=== PATIENT | female | born 1995 | race Hispanic/Latino ===

== ENCOUNTER 2025-07-06 18:00 | Inpatient (IN) | payer MEDICAID, OTHER, SELFPAY ==
[~2025-07-06 18:00] MED LIST: Bupivacaine 0.25% HCL 30 ML VIAL ONE
[2025-07-06 18:59] VITALS: BMI 30.9
[2025-07-06] MEDS ORDERED: Lidocaine 1% (PF) 30 ML VIAL SC PRN (19:32)
[2025-07-06] MEDS ORDERED: hydrALAZINE 20 MG/ML VIAL SLOW IVP PRN (19:32)
[2025-07-06] MEDS ORDERED: Ondansetron PF 4 MG/2 ML Vial IVP PRN (19:32)
[2025-07-06] MEDS ORDERED: Diphenoxylate HCl/Atropine Tablet PO PRN ×2 (19:33)
[2025-07-06] MEDS ORDERED: Tranexamic Acid 1,000 MG/10 ML VIAL IVP PRN (19:33)
[2025-07-06] MEDS ORDERED: Methylergonovine 0.2 MG/ML VIAL IM PRN (19:33)
[2025-07-06] MEDS ORDERED: Ibuprofen 800 MG TAB PO PRN (19:33)
[2025-07-06] MEDS ORDERED: Carboprost 250 MCG/ML AMP IM PRN (19:33)
[2025-07-06] MEDS ORDERED: Acetaminophen 500 MG TAB PO PRN (19:33)
[2025-07-06] MEDS ORDERED: Oxytocin 30 units/NS 500 ML 500 ML IV SCH (19:45)
[2025-07-06 19:52] LABS: Hematocrit 36.3 % (34.9-44.5); Hemoglobin 12.3 g/dL (12.0-15.5); Mean Corpuscular Hemoglobin 29.2 pg (27.0-33.0); Mean Corpuscular Volume 86.2 fL (81.6-98.3); Platelet Count 163 10x3/uL (150-450); Red Blood Cell (RBC) Count 4.21 10x6/uL (3.90-5.03); White Blood Cell (WBC) Count 7.79 10x3/uL (3.5-10.5)
[2025-07-06 20:52] LABS: Hep B Surf Ag - L&D Non-Reactive S/CO (NonReactive)
[2025-07-06 20:53] LABS: Syphilis Antibody Index 0.09 S/CO (<1.00 Non-Reactive)
[2025-07-07] MEDS: Penicillin G Potassium 5 MILL.UNITS in Sodium Chloride 0.9% 100 ML IVPB SCH (09:57)
[2025-07-07] MEDS: fentaNYL/Ropivacaine Epidural 100 ML ONE (10:56)
[2025-07-07] MEDS ORDERED: Acetaminophen 325 MG TAB PO PRN (11:35)
[2025-07-07] MEDS ORDERED: Ondansetron PF 4 MG/2 ML Vial IVP PRN (11:35)
[2025-07-07] MEDS ORDERED: diphenhydrAMINE 50 MG/ML VIAL IVP PRN (11:35)
[2025-07-07] MEDS ORDERED: Communication Order-Pharmacy FS SCH (11:45)
[2025-07-07] MEDS ORDERED: fentaNYL 2 mcg/Ropivacaine 0.2% Epidural 100 ML CADD EPIDURAL SCH (11:45)
[2025-07-07] MEDS: Penicillin G 2.5 MILL.units 2.5 MILL.UNITS in Premix 1 BAG IVPB SCH (13:04)
[2025-07-07] MEDS: Oxytocin 30 units/NS 500 ML 500 ML IV SCH (15:53)
[2025-07-08] MEDS ORDERED: Preparation H Ointment 28 GM TUBE PR PRN
[2025-07-08] MEDS ORDERED: Milk Of Magnesia 30 ML UDCUP PO PRN
[2025-07-08] MEDS ORDERED: Lanolin Ointment 7 GM TUBE TOP PRN
[2025-07-08] MEDS ORDERED: Methylergonovine 0.2 MG/ML VIAL IM PRN
[2025-07-08] MEDS ORDERED: hydrALAZINE 20 MG/ML VIAL SLOW IVP PRN
[2025-07-08] MEDS ORDERED: Oxytocin 30 units/NS 500 ML 500 ML IV SCH
[2025-07-08] MEDS ORDERED: Methylergonovine 0.2 MG TAB PO PRN
[2025-07-08] MEDS ORDERED: Bisacodyl 10 MG SUPP PR PRN
[2025-07-08] MEDS ORDERED: Ondansetron PF 4 MG/2 ML Vial IVP PRN
[2025-07-08] MEDS: Oxytocin 30 units/NS 500 ML 500 ML IV SCH (00:22)
[2025-07-08] MEDS: Ibuprofen 800 MG TAB PO SCH (01:00)
[2025-07-08] MEDS: Boostrix 0.5 ML (Tdap) VIAL (>/=7 yrs of age) IM ONE (02:38)
[2025-07-08] MEDS: Lidocaine 1% (PF) 30 ML VIAL ONE (02:38)
[2025-07-08 05:28] LABS: Hematocrit 34.1 % (34.9-44.5); Hemoglobin 11.5 g/dL (12.0-15.5)
[2025-07-08] MEDS: Ferrous Sulfate 325 MG TAB PO SCH (08:57)
[2025-07-08] MEDS: Benzocaine-Menthol 82.5 ML CAN TOP PRN (09:05)
[2025-07-08] MEDS: Penicillin G 2.5 MILL.units 2.5 MILL.UNITS in Premix 1 BAG IVPB SCH (15:28)
[2025-07-09 16:15] VITALS: BP 118/74; TEMP 97.9
== END 2025-07-09 16:20 | disposition home or self-care (01) | DRG 807 ==
LOC: CSHLD 18:08 → CSHPP 07-08 02:10
PROVIDERS: ADMIT Obstetrics & Gynecology; ATTEND Obstetrics & Gynecology
PROC: 3E0DXGC Introduction of Other Therapeutic Substance into Mouth and Pharynx, External Approach (ICD-10-PCS; principal; 2025-07-08)
PROC: 10E0XZZ Delivery of Products of Conception, External Approach (ICD-10-PCS; principal; 2025-07-08)
PROC: 0U7C7DJ Dilation of Cervix with Intraluminal Device, Temporary, Via Natural or Artificial Opening (ICD-10-PCS; principal; 2025-07-08)
PROC: 0KQM0ZZ Repair Perineum Muscle, Open Approach (ICD-10-PCS; principal; 2025-07-08)
PROC: 10907ZC Drainage of Amniotic Fluid, Therapeutic from Products of Conception, Via Natural or Artificial Opening (ICD-10-PCS; principal; 2025-07-08)
PROC: 0UQMXZZ Repair Vulva, External Approach (ICD-10-PCS; principal; 2025-07-08)
DX: O10.92 Unspecified pre-existing hypertension complicating childbirth (principal); Z37.0 Single live birth; R82.71 Bacteriuria; O99.824 Streptococcus B carrier state complicating childbirth; O75.89 Other specified complications of labor and delivery; O70.1 Second degree perineal laceration during delivery; O70.0 First degree perineal laceration during delivery; Z3A.38 38 weeks gestation of pregnancy; Z79.82 Long term (current) use of aspirin
CPT/HCPCS: 36415; 51702; 59200; 85014; 85018; 85027; 86780; 86850; 86900; 86901; 87340; J0665; J2540; J2590; J3010